=== PATIENT | male | born 2000 | race Caucasian/White ===

== ENCOUNTER 2023-06-01 11:21 | Emergency (ER) | payer BC, SELFPAY ==
[2023-06-01] VITALS (17 sets, daily range): BP systolic 114–138; BP diastolic 85–107; PULSE 64–92; RESP 13–32; TEMP 36.7; O2SAT 98–99
--- NOTE | 2023-06-01 11:57 | ED.GENADULT ---
HPI - General Adult General Chief complaint: Unspecified Stated complaint: feel like I'm dying Time Seen by Provider: 06/01/23 11:55 History of Present Illness HPI narrative: Patient is a 22-year-old male with history of opiate use disorder here with concern for precipitated withdrawal. Patient states that he was a heavy fentanyl user and got clean about a year ago. He has been using again for more than a week. He decided he wanted to get clean and went to an outside emergency department where he was given aim even or pain prescription to do home induction once withdrawal symptoms began. He notes that about a year ago, he also used suboxone and an inpatient program to get clean. He notes he has been microdosing suboxone strips over the last 3 days and this morning began having moderate withdrawal symptoms so around 8:30 AM today he took his first full strip of 8mg. Within 15-30 minutes he began feeling horrible. Symptoms include shakes, yawning, anxiety, pending sense of doom, nausea. He is concerned that he put himself into precipitated withdrawal. He denies any cough, congestion, fever. No other substances used, no alcohol use. He does note that he has several remaining doses of Suboxone at home and is set up with a center for continued dosing. Related Data Allergies Allergy/AdvReac Type Severity Reaction Status Date / Time No Known Allergies Allergy Verified 06/01/23 12:07 Review of Systems Review of Systems: All systems reviewed & are unremarkable except as noted in HPI and below Exam Narrative: GENERAL: uncomfortable appearing, well-nourished, and in no acute distress. HEAD: Normocephalic, atraumatic. EYES: PERRLA and EOMI. ENT: Nares clear. Mucous membranes dry. Yawning. NECK: Supple. CHEST: Clear to auscultation. No respiratory distress. HEART: normal rate. Normal peripheral pulses. ABDOMEN: Soft, diffusely mildly tender, no rebound or guarding, nondistended. EXTREMITIES: Normal range of motion. No edema. SKIN: Warm, dry, no rash. Ag erecta present. NEURO: No focal deficits. Alert and oriented x3. Unable to sit still, tremulous. PSYCH: Anxious appearing Course Course Emergency Course: Chart review performed. Patient reportedly here for concerns for opiate withdrawal. Triage vitals grossly normal. Patient seen evaluated, 22-year-old with history of opiate use disorder here with concern for precipitated withdrawal after taking full dose of Suboxone this morning. COWS is 22, consistent with opiate withdrawal. He is understanding that additional dosing of Suboxone is required to attempt to override this precipitated withdrawal. 16 mg of Suboxone ordered, additionally ordered Ativan, zofran, IVF. QTc boarderline prolonged, will additionally give magnesium IV. Patient re-evaluated, much less flushed on exam with improvement of tremors however he does continue to have significant joint pain and nausea. Will dose again with 8mg of Suboxone. Lab work reviewed, CBC unremarkable, chemistry within normal limits, viral swab negative. Patient re-evaluated, feeling much better at this time. He has 6 or 7 Suboxone at home and plans to call [facility] in the morning to set up continued treatment. Will discharge with 2 day course of zofran and valium to help his withdrawal symptoms. Narcan prescription also ordered. Provided with substance abuse resources. The results of pertinent diagnostic studies and exam findings were discussed. The patient?s provisional diagnosis and plan of care were discussed with the patient and present family. The patient and/or present family expressed understanding of the diagnosis and plan. The nurse was instructed to provide written instructions and appropriate follow-up information. The patient understands their need and responsibility to obtain additional follow-up as instructed. The risks of medications administered and prescribed were discussed with the patient and family present. Vital Signs
--- NOTE | 2023-06-01 11:58 | ECG_ITS ---
Measurements Intervals [place] Rate: 77 P: 50 NM: 146 QRS: 75 QRSD: 98 T: 23 QT: 441 QTc: 499 Interpretive Statements SINUS RHYTHM WITH SINUS ARRHYTHMIA PROLONGED QT INTERVAL ABNORMAL ECG NO PREVIOUS ECG AVAILABLE FOR COMPARISON Electronically Signed On 06-02-2023 7:01:19 CDT by Terry Amezcua M.D.
[2023-06-01] MEDS: SODIUM CHLORIDE 0.9% IV 1,000 ML 999 ML IV CONT (12:16)
[2023-06-01] MEDS: LORazepam INJ (*CRX) 2 MG/ML VIAL 1 MG IV PUSH ×2 (12:17→12:52)
[2023-06-01] MEDS: ONDANSETRON INJ 4 MG/2 ML VIAL IV PUSH (12:17)
[2023-06-01 12:28] LABS: Basophils Absolute Auto 0.1 K/mm3 (0.0-0.1); Basophils Percent Auto 0.9 % (0.2-1.2); Eosinophils Percent Auto 0.3 % (0-4.4); Hematocrit 47.4 % (42.0-52.0); Hemoglobin 16.3 g/dL (14.0-18.0); Immature Granulocyte Absolute 0.01 K/mm3 (0.00-0.031); Immature Granulocyte Percent A 0.1 % (0-0.5); Lymphocytes Absolute Auto 1.65 K/mm3 (0.9-3.2); Lymphocytes Percent Auto 21.2 % (18.3-44.2); Mean Corpuscular HGB Conc 34.4 g/dl (32-36); Mean Corpuscular Hemoglobin 30.9 pg (26-34); Mean Corpuscular Volume 89.8 fl (80-100); Mean Platelet Volume 11.1 fl (7.4-10.4); Monocytes Absolute Auto 0.5 K/mm3 (0.1-0.6); Monocytes Percent Auto 6.3 % (2.6-8.5); Neutrophils Absolute Auto 5.5 K/mm3 (1.3-6.7); Neutrophils Percent Auto 71.2 % (45.5-73.1); Platelet Count Result 246 k/mm3 (150-375); Red Blood Count 5.28 M/mm3 (4.6-6.20); White Blood Count 7.8 K/mm3 (4.5-10.0)
[2023-06-01] MEDS: BUPRENORPHINE/NALOXONE (*CRX) 4 MG/1 MG SL FILM 4 EACH SUBLINGUAL (12:28)
[2023-06-01 12:39] LABS: Alanine Aminotransferase 46 U/L (6-50); Albumin Level 4.9 g/dL (3.5-5.1); Alkaline Phosphatase 102 U/L (38-126); Anion Gap 9 mmol/L (8-16); Aspartate Amino Transferase 36 U/L (17-59); Blood Urea Nitrogen 12 mg/dL (9-20); Calcium 9.7 mg/dL (8.4-10.2); Carbon Dioxide 26 mmol/L (22-30); Chloride 104 mmol/L (98-107); Estimated CRCL calculation 111 ml/min; Estimated Glomerular Filt Rate > 60; Glucose 115 mg/dL (65-110); Magnesium 2.3 mg/dL (1.6-2.3); Potassium 3.8 mmol/L (3.4-5.0); Sodium 139 mmol/L (137-145)
[2023-06-01] MEDS: cloNIDine HCL 0.1 MG TABLET PO (12:52)
[2023-06-01] MEDS: MAGNESIUM SULF 2 GM/WATER 50ML 2 GM/50 ML BAG IVPB (12:53)
[2023-06-01 13:04] LABS: Influenza A QL RT-PCR Negative (Negative); Influenza B QL RT-PCR Negative (Negative); RSV RNA, RT-PCR Negative (Negative); SARS-CoV-2 RNA PCR Negative (Negative)
[2023-06-01] MEDS: BUPRENORPHINE/NALOXONE (*CRX) 4 MG/1 MG SL FILM 2 EACH SUBLINGUAL (13:41)
== END 2023-06-01 15:00 | disposition home or self-care (01) ==
PROVIDERS: Emergency Provider Student in an Organized Health Care Education/Training Program
DX: F11.93 Opioid use, unspecified with withdrawal (principal); Z20.822 Contact with and (suspected) exposure to COVID-19
CPT/HCPCS: 36415; 80053; 83735; 85025; 87637; 93005; 96365; 96375; 96376; 99284; A9270; J2060; J2405; J3475; J7030